=== PATIENT | female | born 1960 | race Hispanic/Latino ===

== ENCOUNTER 2019-11-05 14:08 | Outpatient (CLI) | payer BC ==
--- NOTE | 2019-11-05 16:21 | Ultrasound Report ---
ULTRASOUND-GUIDED NEEDLE CORE BIOPSY RIGHT BREAST WITH CLIP PLACEMENT CLINICAL: History of right breast cancer status post mastectomy with implant reconstruction. A palpab le lump at a scar in the axilla. FINDINGS: The procedure was explained to the patient and informed consent was obtained. Ultrasound demonstrated a solid heterogeneous predominantly hypoechoic mass of the right axilla at 11 :00 9 cm from the nipple. It is superficial and close to the skin. It measures approximately 1.9 x 0. 9 x 0.8 cm.. I marked the breast with a felt tip marker and a timeout was called. The skin was prepped with Chloro -Prep and anesthetized with 1% lidocaine. Needle core biopsy was performed through small dermatotomy using ultrasound guidance, 2% lidocaine wi th epinephrine for deep anesthesia and a 14-gauge Achieve biopsy device. 4 cores were obtained and pl aced in formalin. A hydromark was deployed within the lesion. The patient tolerated the procedure well and there were no apparent complications. Hemostasis was ach ieved with minimal effort and a sterile dressing was applied. IMPRESSION: Uncomplicated ultrasound guided needle core biopsy with clip placement right axilla. Signer Name: Virgilio Flores MD Signed: 11/05/2019 4:17 PM Workstation Name: [id number]
== END 2019-11-05 14:09 | disposition home or self-care (01) ==
LOC: SPVWC 14:08
PROVIDERS: ATTEND Surgery
DX: N63.11 Unspecified lump in the right breast, upper outer quadrant (principal)
CPT/HCPCS: 88305